=== PATIENT | female | born 1965 | race African-American/Black ===

== ENCOUNTER 2018-10-13 16:46 | Inpatient (IN) | payer OTHER ==
[2018-10-13] MEDS ORDERED: METOCLOPRAMIDE 10 MG TAB PO (19:00)
[2018-10-13] MEDS: ALBUTEROL 0.083% (NEB) 2.5 MG/3 ML AMP HHN (20:58)
[2018-10-13] MEDS: FAMOTIDINE 20 MG TAB PO (21:56)
[2018-10-13] MEDS: DOCUSATE SODIUM 100 MG CAP PO (21:56)
[2018-10-13] MEDS: GABAPENTIN 100 MG CAP PO (21:56)
[2018-10-13] MEDS: HYDROmorphONE 0.5 MG/0.5 ML SYG IV (21:57)
[2018-10-14] MEDS: ALBUTEROL 0.083% (NEB) 2.5 MG/3 ML AMP HHN ×4 (02:03→19:25)
[2018-10-14] MEDS: LIDOCAINE 5% PATCH TD (02:27)
[2018-10-14] MEDS: OXYCODONE/ACETAMINOPHEN (5/325) TAB PO ×5 (02:27→22:57)
[2018-10-14] MEDS: HYDROmorphONE 0.5 MG/0.5 ML SYG IV ×3 (06:43→18:44)
[2018-10-14] MEDS: GABAPENTIN 100 MG CAP PO ×3 (08:52→21:23)
[2018-10-14] MEDS: FAMOTIDINE 20 MG TAB PO ×2 (08:52→21:23)
[2018-10-14] MEDS: DOCUSATE SODIUM 100 MG CAP PO ×2 (08:52→21:23)
[2018-10-14] MEDS: ENOXAPARIN 40 MG/0.4 ML SYG SC (08:55)
[2018-10-14] MEDS: HYDROmorphONE 1 MG/ML SYG IV (21:23)
[2018-10-14] MEDS ORDERED: CARISOPRODOL 350 MG TAB PO (23:30)
[2018-10-15] MEDS: HYDROmorphONE 0.5 MG/0.5 ML SYG IV ×3 (00:39→12:17)
[2018-10-15] MEDS: ALBUTEROL 0.083% (NEB) 2.5 MG/3 ML AMP HHN ×4 (01:46→19:19)
[2018-10-15] MEDS: CARISOPRODOL 350 MG TAB PO ×3 (01:47→23:34)
[2018-10-15] MEDS: OXYCODONE/ACETAMINOPHEN (5/325) TAB PO ×4 (03:08→21:08)
[2018-10-15] MEDS: DOCUSATE SODIUM 100 MG CAP PO ×2 (08:13→21:08)
[2018-10-15] MEDS: GABAPENTIN 100 MG CAP PO ×3 (08:13→21:07)
[2018-10-15] MEDS: FAMOTIDINE 20 MG TAB PO ×2 (08:13→21:07)
[2018-10-15] MEDS: ENOXAPARIN 40 MG/0.4 ML SYG SC (08:19)
[2018-10-15 11:08] LABS: ADD MAN DIFF? NO
[2018-10-15 11:12] LABS: WHITE BLOOD COUNT 5.5 10^3/ul (4.8-10.8)
[2018-10-15 11:12] LABS: BASOPHIL # 0.1 10^3/ul (0.0-0.1); BASOPHILS % 1.1 % (0.0-2.0); EOSINOPHILS # 0.2 10^3/ul (0.0-0.5); EOSINOPHILS % 3.8 % (0.0-7.0); HEMATOCRIT 34.6 % (37.0-47.0); HEMOGLOBIN 11.5 g/dl (12.0-16.0); LYMPHOCYTES # 1.6 10^3/ul (0.8-2.9); LYMPHOCYTES % 29.6 % (15.0-51.0); MEAN CORPUSCULAR HGB CONC 33.2 g/dl (32.0-37.0); MEAN CORPUSCULAR VOLUME 87.2 fl (82.0-101.0); MEAN PLATELET VOLUME 8.7 fl (7.4-10.4); MONOCYTE # 0.6 10^3/ul (0.3-0.9); MONOCYTES % 10.1 % (0.0-11.0); NEUTROPHILS % 55.2 % (39.0-77.0); PLATELET COUNT 394 10^3/UL (140-415); RED BLOOD COUNT 3.97 10^6/ul (4.20-5.40); RED CELL DISTRIBUTION WIDTH 12.6 % (11.5-14.5)
[2018-10-15 11:31] LABS: MAGNESIUM 1.6 mg/dl (1.7-2.5)
[2018-10-15 11:31] LABS: PHOSPHORUS 2.9 mg/dl (2.5-4.9)
[2018-10-15 11:34] LABS: ANION GAP 10 (5-13); BLOOD UREA NITROGEN 7 mg/dl (7-20); CALCIUM 9.9 mg/dl (8.4-10.2); CARBON DIOXIDE 28 mmol/L (21-31); CHLORIDE 99 mmol/L (97-110); CREATININE 0.54 mg/dl (0.44-1.00); Estimated GFR > 60 mL/min (>60); GLUCOSE 104 mg/dl (70-220); POTASSIUM 4.1 mmol/L (3.5-5.1); SODIUM 137 mmol/L (135-144)
[2018-10-15] MEDS: MAGNESIUM CHLORIDE (SR) 64 MG TAB PO ×2 (15:00→21:07)
[2018-10-15] MEDS: LUBIPROSTONE 8 MCG CAPSULE PO ×2 (15:00→21:06)
[2018-10-15] MEDS: HYDROmorphONE 1 MG/ML SYG IV ×2 (18:05→22:35)
[2018-10-16] MEDS: ALBUTEROL 0.083% (NEB) 2.5 MG/3 ML AMP HHN ×4 (01:28→20:31)
[2018-10-16] MEDS: HYDROmorphONE 1 MG/ML SYG IV ×5 (02:32→20:23)
[2018-10-16] MEDS: ONDANSETRON 4 MG INJ IV ×2 (02:55→10:11)
[2018-10-16] MEDS: OXYCODONE/ACETAMINOPHEN (5/325) TAB PO ×5 (04:27→22:06)
[2018-10-16] MEDS: LUBIPROSTONE 8 MCG CAPSULE PO ×2 (08:28→20:21)
[2018-10-16] MEDS: GABAPENTIN 100 MG CAP PO ×3 (08:28→20:21)
[2018-10-16] MEDS: DOCUSATE SODIUM 100 MG CAP PO ×2 (08:28→20:21)
[2018-10-16] MEDS: FAMOTIDINE 20 MG TAB PO ×2 (08:28→20:22)
[2018-10-16] MEDS: ENOXAPARIN 40 MG/0.4 ML SYG SC (08:31)
[2018-10-17] MEDS: HYDROmorphONE 1 MG/ML SYG IV ×6 (00:16→21:40)
[2018-10-17] MEDS: OXYCODONE/ACETAMINOPHEN (5/325) TAB PO ×4 (02:13→16:22)
[2018-10-17] MEDS: CARISOPRODOL 350 MG TAB PO ×3 (02:13→20:35)
[2018-10-17] MEDS: ONDANSETRON 4 MG INJ IV ×2 (02:22→13:30)
[2018-10-17] MEDS: ALBUTEROL 0.083% (NEB) 2.5 MG/3 ML AMP HHN ×4 (02:56→19:21)
[2018-10-17] MEDS: FAMOTIDINE 20 MG TAB PO ×2 (10:24→20:35)
[2018-10-17] MEDS: GABAPENTIN 100 MG CAP PO ×3 (10:24→20:35)
[2018-10-17] MEDS: DOCUSATE SODIUM 100 MG CAP PO ×2 (10:24→20:35)
[2018-10-17] MEDS: LUBIPROSTONE 8 MCG CAPSULE PO ×2 (10:24→20:35)
[2018-10-17] MEDS: ENOXAPARIN 40 MG/0.4 ML SYG SC (10:26)
[2018-10-18] MEDS: OXYCODONE/ACETAMINOPHEN (5/325) TAB PO ×4 (01:01→14:09)
[2018-10-18] MEDS: ALBUTEROL 0.083% (NEB) 2.5 MG/3 ML AMP HHN ×4 (02:16→21:50)
[2018-10-18] MEDS: HYDROmorphONE 1 MG/ML SYG IV ×5 (07:35→22:21)
[2018-10-18] MEDS: FAMOTIDINE 20 MG TAB PO ×2 (09:30→20:40)
[2018-10-18] MEDS: DOCUSATE SODIUM 100 MG CAP PO ×2 (09:37→20:40)
[2018-10-18] MEDS: ENOXAPARIN 40 MG/0.4 ML SYG SC (09:37)
[2018-10-18] MEDS: GABAPENTIN 100 MG CAP PO ×3 (09:38→20:40)
[2018-10-18] MEDS: LUBIPROSTONE 8 MCG CAPSULE PO ×2 (09:38→20:40)
[2018-10-18] MEDS: LIDOCAINE 5% PATCH TD (11:38)
[2018-10-18] MEDS: CARISOPRODOL 350 MG TAB PO (11:38)
[2018-10-18] MEDS ORDERED: ALPRAZOLAM 0.25 MG TAB PO (19:30)
[2018-10-19] MEDS: ALBUTEROL 0.083% (NEB) 2.5 MG/3 ML AMP HHN ×3 (02:36→12:42)
[2018-10-19] MEDS: OXYCODONE/ACETAMINOPHEN (5/325) TAB PO ×3 (03:42→12:55)
[2018-10-19] MEDS: CARISOPRODOL 350 MG TAB PO (06:56)
[2018-10-19] MEDS: ENOXAPARIN 40 MG/0.4 ML SYG SC (08:03)
[2018-10-19] MEDS: LUBIPROSTONE 8 MCG CAPSULE PO (08:04)
[2018-10-19] MEDS: FAMOTIDINE 20 MG TAB PO (08:05)
[2018-10-19] MEDS: DOCUSATE SODIUM 100 MG CAP PO (08:05)
[2018-10-19] MEDS: GABAPENTIN 100 MG CAP PO ×2 (08:05→13:25)
[2018-10-19] MEDS: HYDROmorphONE 1 MG/ML SYG IV ×3 (10:06→17:13)
[2018-10-19] MEDS: HYDROmorphONE 2 MG TAB PO (18:02)
== END 2018-10-19 18:30 | DRG 184 ==
LOC: MS1 10-17 03:22
DX: S22.42XA Multiple fractures of ribs, left side, initial encounter for closed fracture (principal); E87.1 Hypo-osmolality and hyponatremia; J93.9 Pneumothorax, unspecified; R64 Cachexia; Z68.1 Body mass index [BMI] 19.9 or less, adult; V03.99XA Pedestrian with other conveyance injured in collision with car, pick-up truck or van, unspecified whether traffic or nontraffic accident, initial encounter; S42.022A Displaced fracture of shaft of left clavicle, initial encounter for closed fracture; I10 Essential (primary) hypertension; E05.00 Thyrotoxicosis with diffuse goiter without thyrotoxic crisis or storm; S83.91XA Sprain of unspecified site of right knee, initial encounter; F12.90 Cannabis use, unspecified, uncomplicated; S63.619A Unspecified sprain of unspecified finger, initial encounter; E83.42 Hypomagnesemia; D64.9 Anemia, unspecified; M54.16 Radiculopathy, lumbar region; G62.9 Polyneuropathy, unspecified
CPT/HCPCS: 71045; 72148; 73000; 73560; 80048; 83735; 84100; 84443; 85025; 94640; 94664; 97116; 97162; 97530

== ENCOUNTER 2018-11-01 06:52 | Emergency (ER) | payer OTHER ==
[2018-11-01] MEDS: ONDANSETRON 4 MG INJ IV (07:28)
[2018-11-01] MEDS: HYDROmorphONE 2 MG/ML SYG IM (07:28)
[2018-11-01] MEDS: ONDANSETRON (ODT) 4 MG TAB ODT (07:33)
[2018-11-01] MEDS: LORAZEPAM 1 MG TAB PO (08:07)
== END 2018-11-01 10:17 ==
LOC: E/R 10:17
DX: G89.4 Chronic pain syndrome (principal); I10 Essential (primary) hypertension; R51 Headache
CPT/HCPCS: 70450; 71250; 96372; 99285-25